=== PATIENT | male | born 1930 | race Caucasian/White ===

== ENCOUNTER 2017-01-09 14:00 | Outpatient (CLI) | payer MEDICARE, BC ==
--- NOTE | 2017-01-09 14:56 | RAD ---
CERVICAL SPINE SERIES 4 VIEWS: HISTORY: Postop. History of fracture. The patient is in a C-collar for this exam. COMPARISON: A 07/28/14 study. FINDINGS: The patient has undergone an anterior cervical fusion at the C4-5 level. This finding appears stable as compared to the prior exam. Severe arthritic changes of the spine are noted. A fracture of the base of the dens is visualized. I do not have any images that show this fracture, but the tip of the dens is posteriorly angulated. IMPRESSION: 1. Base of dens fracture. I have no previous films that show the fracture for comparison. The cordelia ent is in a C-collar. 2. Severe arthritic changes of the spine and postop changes. POS: [facility]
== END 2017-01-09 14:01 | disposition home or self-care (01) ==
LOC: TBSIIMAG 14:00
PROVIDERS: ATTEND Neurological Surgery
DX: S12.9XXA Fracture of neck, unspecified, initial encounter (principal); M47.812 Spondylosis without myelopathy or radiculopathy, cervical region; Z98.890 Other specified postprocedural states
CPT/HCPCS: 72040

== ENCOUNTER 2017-02-26 13:01 | Outpatient (CLI) | payer MEDICARE, BC ==
--- NOTE | 2017-02-26 14:38 | RAD ---
SIX VIEWS OF THE CERVICAL SPINE: 02/26/2017 HISTORY: Fracture of C2 and C3 with prior surgery. COMPARISON: 01/09/2017 FINDINGS: Due to osteopenia and patient positioning, detailed assessment of the cervical spine is markedly limi danelle. There is postoperative anterior diskectomy and fusion hardware at the C4-C5 level. There is suggestion of an obliquely oriented fracture involving the base of the dens, with mild impac tion and posterior displacement of the distal fracture fragment, similar when compared to the prior e xamination, although the distal fracture fragment may be somewhat more sclerotic and slightly posteri karla displaced when compared to the prior exam. However, this distinction is hard to make on the bas is of this exam secondary to patient positioning. The frontal imaging appears grossly unchanged, wit h a stable cervical spine dextroscoliosis. The dens, occipital condyles, and C1-C2 articulation are poorly assessed on frontal imaging secondary to positioning. IMPRESSION: Grossly unchanged cervical spine series, markedly limited on the basis of patient positioning. The s uspected fracture of the C2 vertebral body cannot be adequately assessed on this exam. Recommend CT for further assessment. POS: [facility]
== END 2017-02-26 13:02 | disposition home or self-care (01) ==
LOC: TBSIIMAG 13:01
PROVIDERS: ATTEND Neurological Surgery
DX: S12.0 Fracture of first cervical vertebra (principal); G95.9 Disease of spinal cord, unspecified
CPT/HCPCS: 72040

== ENCOUNTER 2017-05-27 00:04 | Inpatient (IN) | payer MEDICARE, BC ==
[2017-05-27 00:27] LABS: pH, Arterial 7.51 (7.35-7.45)
[2017-05-27 00:28] LABS: Actual Bicarbonate (HCO3a) 28.2 mEq/L (22-26); Base Excess (BEa) 5.1 mEq/L (0 (+/-) 2.5); CO2 Tension 36.3 mmHg (35.0-45.0); Hematocrit-ABG 39.2 % (42.0-52.0); Hemoglobin (Hb) 12.1 g/dL (14.0-18.0)
[2017-05-27 00:29] LABS: Analyzer IN Cardio ER; Calcium, Ionized 1.1 mmol/L (1.12-1.30); Puncture Site LRA
[2017-05-27 00:30] LABS: ALV-art Gradient 163.625 (0-20)
[2017-05-27] MEDS ORDERED: Cefepime 2 GM/10 ML SYR ONE (00:36)
[2017-05-27] MEDS ORDERED: Acetaminophen 325 MG Suppository ONE (00:36)
[2017-05-27] MEDS ORDERED: Vancomycin HCl 1 GM in Premix Bag 1 BAG IVPB SCH ×3 (00:45→09:00)
[2017-05-27 00:49] LABS: Hemoglobin 12.2 g/dL (14.0-18.0); Mean Corpuscular HGB CONC 31.8 g/dL (32.0-36.0); Mean Corpuscular Hemoglobin 30.3 pg (27.0-31.0); Mean Corpuscular Volume 95.3 fl (80.0-94.0); Mean Platelet Volume 9.4 fL (7.4-10.4); Platelet Count 158 thou/uL (130-400); RBC Distribution Width 15.6 % (11.5-14.5); Red Blood Cell (RBC) Count 4.02 mill/uL (4.70-6.10); White Blood Cell (WBC) Count 15.9 thou/uL (4.8-10.8)
[2017-05-27 01:10] LABS: Band 1 % (5-11); Lymphocytes 5 % (21-51); MDiff Complete? YES; Monocytes 6 % (0-10); Neutrophil 87 % (42-75)
[2017-05-27 01:13] LABS: ALT (SGPT) 19 U/L (8-55); AST (SGOT) 46 U/L (5-34); Albumin 3.3 g/dL (3.4-4.8); Alkaline Phosphatase 144 U/L (40-150); Anion Gap 18 mmol/L (10-20); BUN (Urea Nitrogen) 77 mg/dL (8.4-25.7); Bilirubin, Total 1.1 mg/dL (0.2-1.2); Calc. Creatinine Clearance 0 mL/min (70-130); Calcium 9.1 mg/dL (7.8-10.44); Carbon Dioxide 27 mmol/L (23-31); Chloride 99 mmol/L (98-107); Estimated GFR-MDRD 26; Globulin 2.5 g/dL (2.4-3.5); Glucose 98 mg/dL (83-110); Magnesium 2.4 mg/dL (1.6-2.6); Phosphorus 4.7 mg/dL (2.3-4.7); Potassium 5.6 mmol/L (3.5-5.1); Protein, Total 5.8 g/dL (5.8-8.1); Sodium 138 mmol/L (136-145)
[2017-05-27 01:19] LABS: CKMB 1.1 ng/mL (0-6.6); Troponin I 0.273 ng/mL (< 0.028)
[2017-05-27] MEDS ORDERED: Calcium Carbonate 500 MG ChewTAB PO PRN (01:45)
[2017-05-27] MEDS ORDERED: Acetaminophen 650 MG Suppository PR PRN (01:45)
[2017-05-27] MEDS ORDERED: Norepinephrine 8 MG/0.9% NS 250 ML IVPB PRN (01:45)
[2017-05-27] MEDS ORDERED: Mag-Al 1200 mg/1200 mg/30 ML UDCUP PO PRN (01:45)
[2017-05-27] MEDS ORDERED: Sodium Chloride 0.9% 1,000 ML IV SCH (01:45)
[2017-05-27] MEDS ORDERED: Ondansetron HCl/PF 4 MG/2 ML Vial IVP PRN (01:45)
[2017-05-27] MEDS ORDERED: Senokot 8.6 MG TAB PO PRN (01:45)
[2017-05-27] MEDS ORDERED: Acetaminophen 325 MG TAB PO PRN (01:45)
[2017-05-27] MEDS ORDERED: Bisacodyl 5 MG TAB PO PRN (01:45)
[2017-05-27] MEDS ORDERED: VANCOMYCIN IVPB PRN (01:58)
--- NOTE | 2017-05-27 04:24 | HP ---
PRIMARY CARE PHYSICIAN: Dr. Manolo Erickson at [facility]. CHIEF COMPLAINT: Shortness of breath, altered mental status, and fever. HISTORY OF PRESENT ILLNESS: Mr. Kuo is an 86-year-old male with past medical history o f congestive heart failure, EF of 30%; atrial fibrillation; rheumatoid arthritis; coronary artery dis ease; hypertension; dyslipidemia; hypothyroidism; and pacemaker placement for bradycardia, who presen danelle to the emergency room from [facility]. History is mainly obtained by the record r gail and discussion with emergency room physician. The patient is not able to provide any history a t this time because of encephalopathy and dementia and there is no family at bedside. skilled nursing r ecords are reviewed in entirety. It seems like that Mr. Kuo was recently admitted to [facility] and was treated for UT I and for bradycardia with pacemaker replacement. He was discharged to [facility] 2 d ays ago. He was brought into the emergency room today when he was found to have altered mental statu s. He was also significantly short of breath with [facility] He was initially started on nonrebreather and oxygen saturations did not improve. Upon EMS arrival, the patient was 90% on room air and the sats dropped to 80% afterwards. The EMS placed the patient on CPAP and sats improved to 100%, but he was noted to have periods of apnea en route. Upon presentation to the emergency room, he was found to have a temperature of 101.1 with blood pressure o f 99/56, heart rate of 72. He was not able to provide any history and was moaning. He was found to have significant encephalopathy. In the emergency room, workup included a 12-lead EKG, which showed sinus rhythm with first degree AV block. Chest x-ray was done which was consistent with right lower lobe pneumonia. Because of hypote nsion and hypoxia, he was treated with BiPAP and started on IV fluids and received empiric IV antibio tics, namely vancomycin, cefepime, and levofloxacin. Cultures were obtained. His further workup rev ealed leukocytosis with left shift as well as elevated lactic acid at 2.4 and acute renal insufficien cy with creatinine of 2.35 and hyperkalemia with a potassium of 5.6. He also has borderline elevated troponin at 0.273. BNP that was added a little bit later came back just now elevated at 7929. At this time, the patient is being admitted to [facility] on BiPAP and his most recent blood pressure is sy stolic, it is in the 90s. PAST MEDICAL HISTORY: 1. Atrial fibrillation. 2. History of sinus bradycardia, status post pacemaker placement. 3. Congestive heart failure with echo done on 05/19/2017 showed dilated left ventricle with severely reduced EF of 30% without any evidence of intracardiac mass or thrombi. He also has mild mitral reg urgitation. 4. Rheumatoid arthritis. 5. Coronary artery disease. 6. Hypertension. 7. Dyslipidemia. 8. Hypothyroidism. PAST SURGICAL HISTORY: 1. Orchiectomy. 2. Superficial lymph node biopsy and excision. SOCIAL HISTORY: According to the EMR, he has no history of drug, tobacco, or alcohol abuse. He is c urrently doing rehab at [facility]. ALLERGIES: NEOSPORIN. HOME MEDICATIONS: Listed at the rehab chart includes as follows minocycline 100 mg twice a day for 5 days, which was started on 05/22/2017, Lasix 80 mg daily, amiodarone 200 mg daily, Advair Diskus 1 p uff daily, hydroxychloroquine 200 mg daily, DuoNeb as needed, levothyroxine 88 mcg daily, midodrine 5 mg 3 times a day, potassium chloride 10 mEq daily, ranitidine 150 mg b.i.d., Singulair 5 mg daily, t razodone 25 mg at bedtime, and Kenalog topical. FAMILY HISTORY: Unobtainable, but according to the EMR, family history is positive for coronary lele ry disease, stroke, and rheumatoid arthritis. I have no way to corroborate that from the patient as he is very encephalopathic. REVIEW OF SYSTEMS: Unobtainable as the patient has dementia and has altered mental status at this ti mi. LABORATORY AND DIAGNOSTIC DATA: His CBC shows WBCs at 15.9 with 87% neutrophils, hemoglobin 12.2. A BG shows pH of 7.51, pCO2 of 36, pO2 of 504 on CPAP. Sodium 138, potassium 5.3 on the ABG. Serum ch emistry shows BUN of 77, creatinine 2.35. Lactic acid 2.4, AST 46, troponin 0.273. BNP 7929. Urina lysis has not been done. Chest x-ray shows possible pulmonary vascular congestion and right lower lo be infiltrate by my review. Formal report is pending at this time. Twelve lead EKG shows sinus tach ycardia. PHYSICAL EXAMINATION: VITAL SIGNS: Upon presentation, blood pressure 98/57, respirations 18, pulse of 61, saturating 100% on BiPAP, temperature 99.4, and T-max of 100.4. GENERAL: He is easily agitated. He is otherwise encephalopathy and does not follow any commands or answers any questions. He moves all 4 extremities when touched even gently and starts to holler. Ap pears thin and cachectic. HEENT: Mucous membrane is very dry. Exam is limited because of the BiPAP mask. Head appears normoc ephalic, atraumatic with frontal wasting. Pupils are equal, reactive to light. NECK: Supple without any lymphadenopathy, JVD, or bruit. CHEST: Shows decreased breath sound at bases and bibasilar crackles. CARDIOVASCULAR: Regular rate and rhythm is regular without any significant murmurs. Pacemaker in le ft anterior chest without any unwanted adhesion or discharge. ABDOMEN: Soft, nondistended with positive bowel sounds. EXTREMITIES: Free of any cyanosis, clubbing, or edema. NEUROLOGIC: He is moving all 4 extremities. He is not oriented at all or alert. He is somnolent an d when awoken up, he is quite agitated. He does not answer any questions or follow any commands. SKIN: Fragile with different areas of bruises and skin tears. PSYCHIATRIC: Cannot be evaluated because of encephalopathy. IMPRESSION AND PLAN: 1. Acute metabolic encephalopathy. This is likely multifactorial along with renal insufficiency and significant sepsis. 2. Severe sepsis with acute end-organ damage. At this time, the source most likely either is pneumo mabel versus urinary tract infection or both. We will obtain urine cultures and follow the blood cultu re results. Start him empirically with broad spectrum IV antibiotics for healthcare-associated pneum onia. The patient has received approximately 2 liters of IV fluid in the emergency room for hypotens ion and at this time, we will not give him any more given his poor ejection fraction and evidence of pulmonary vascular congestion on the chest x-ray. 3. Septic shock versus cardiogenic shock. The patient has advanced congestive heart failure and his blood pressure has dropped to 80s despite 2 liters of IV fluids. It has improved to systolic 90s fo r now. We will admit him for the ICU with a low threshold to transfer to critical care unit on press ors. He will benefit from dobutamine infusion, but unfortunately he does not have a central line at this time. If needed, we will start the Levophed drip tonight with transitioning to dobutamine drip in the morning. We will consult Pulmonary Critical Care for their input in the morning as well. 4. Acute renal insufficiency. I do not have any baseline for this patient. Most likely, this seems like an acute episode. His creatinine on 05/23/2017 was normal at 1.30. This might represent a car diorenal syndrome versus dehydration. The patient has been adequately fluid resuscitated for now and cannot handle any more fluids because of congestive heart failure. 5. Acute hypoxic respiratory failure. This most likely is a combination of pneumonia versus acute c ongestive heart failure as well as his chronic pulmonary fibrosis that the patient has. He will be c ontinued on BiPAP for now. The patient's code status is unknown. He does have a DNR bracelet on his arm, but unfortunately the alf has not sent his code status paper works. There is no famil y to address this at this time either. We will consult palliative care team for this in the morning. The patient will be a very poor candidate to be a FULL CODE. We will start him on nebulizers sched uled and p.r.n. 6. Acute on chronic systolic congestive heart failure. The patient needs diuresis, but because of l ow blood pressure, it is prohibitive at this time. If his blood pressure sustains, we will give him 1 dose of Lasix. 7. History of atrial fibrillation. The patient will be continued on amiodarone as soon as he is abl e to take oral medications. Thankfully, at this time, he is in normal sinus rhythm. 8. History of coronary artery disease. We will resume his home medications as soon as possible. Cu rrently, the patient is n.p.o. for encephalopathy. 9. Code status: At this time the code status is unknown because there is no family available and th e patient is unable to provide any answers to the questions. We will consult Palliative Care team fo r further addressing this issue. 10. Deep venous thrombosis and gastrointestinal prophylaxis. 11. Add p.r.n. medication orders and continue supportive care. DISPOSITION: Mr. Kuo is severely ill with severe sepsis: Acute hypoxic respiratory failure: Ac shashank on chronic systolic congestive heart failure and acute kidney insufficiency. Prognosis is very p oor, would not be an expected. Estimated length of stay at this time is at least 2-3 midnights. Further management will depend upon his clinical course. Total time spent in the care of this patient is 40 minutes.
[2017-05-27 04:28] LABS: Bilirubin Small (Negative); Blood, Urine Small (Negative); Clarity CLOUDY (Clear); Glucose, Urine (Dipstick) Negative (Negative); Leukocyte Small (Negative); Nitrite Negative (Negative); Protein, Urine (Dipstick) 30 mg/dL (Neg-Trace); Specific Gravity, Urine 1.023 (1.002-1.036); Urobilinogen 0.2 mg/dL (0.2-1.0)
[2017-05-27 04:29] LABS: Bacteria/HPF None Seen HPF (None Seen); Squamous Epithelial 0-3 HPF (0-3); WBC/HPF 0-3 HPF (0-3)
[2017-05-27 04:30] LABS: Pathc Cast-AUWi Flag 6.83 (0-2.49); Yeast-AUWi Flag 46.8 (0-25.0)
[2017-05-27] MEDS ORDERED: HOLD VANCOMYCIN FOR LEVEL >20 FS SCH (04:30)
[2017-05-27] MEDS ORDERED: Vancomycin HCl 250 MG in Sodium Chloride 0.9% 100 ML IVPB SCH (04:30)
[2017-05-27] MEDS ORDERED: Vancomycin HCl 500 MG in Sodium Chloride 0.9% 100 ML IVPB SCH (04:30)
[2017-05-27] MEDS ORDERED: Vancomycin HCl 750 MG in Sodium Chloride 0.9% 250 ML 250 ML IVPB SCH (04:30)
[2017-05-27 04:42] LABS: Crystals/HPF 1+ AMORPH URATES HPF (Negative); Hyaline Casts/LPF 7-10 HYALINE CAST LPF (0-3 Hyaline); Manual Microscopic Reviewed? No Path Casts Seen; Renal Epithelial 0-3 HPF (0-3); Transitional Epithelial NONE SEEN HPF (0-3); Yeast-All Forms None Seen HPF (None Seen)
--- NOTE | 2017-05-27 05:02 | PDOC.EVN ---
Event Note - Event Note Event Note: Code status discussed with Son who ,along with .is MPOA.Pt is a DNR/ DNI.Will put orders in [facility].Total time spent in discussion 10 minutes.
[2017-05-27 06:12] LABS: Lactic Acid 2.3 mmol/L (0.5-2.2)
[2017-05-27 06:19] LABS: Anion Gap 14 mmol/L (10-20); BUN (Urea Nitrogen) 75 mg/dL (8.4-25.7); Calc. Creatinine Clearance 20 mL/min (70-130); Calcium 8.4 mg/dL (7.8-10.44); Carbon Dioxide 27 mmol/L (23-31); Chloride 103 mmol/L (98-107); Estimated GFR-MDRD 30; Glucose 89 mg/dL (83-110); Potassium 5.1 mmol/L (3.5-5.1); Sodium 139 mmol/L (136-145)
[2017-05-27 06:47] LABS: Band 2 % (5-11); Hemoglobin 10.9 g/dL (14.0-18.0); Lymphocytes 6 % (21-51); MDiff Complete? YES; Mean Corpuscular HGB CONC 31.2 g/dL (32.0-36.0); Mean Corpuscular Hemoglobin 29.9 pg (27.0-31.0); Mean Platelet Volume 9.4 fL (7.4-10.4); Monocytes 9 % (0-10); Neutrophil 83 % (42-75); Platelet Count 142 thou/uL (130-400); RBC Distribution Width 15.5 % (11.5-14.5); Red Blood Cell (RBC) Count 3.65 mill/uL (4.70-6.10); White Blood Cell (WBC) Count 14.2 thou/uL (4.8-10.8)
--- NOTE | 2017-05-27 07:47 | RAD ---
PORTABLE CHEST: DATE: 05/26/17. TIME: 11:40 p.m. INDICATION: Shortness of breath. Mental status change. COMPARISON: Comparison is made with the film of 05/26/17 at 8:11 p.m. FINDINGS: Cardiomegaly and vascular congestion again noted. The interstitial edema may be slightly improved. Pacemaker AICD leads are unchanged. No other significant change. IMPRESSION: Cardiomegaly with mild congestive change. POS: [facility]
[2017-05-27] MEDS ORDERED: Cefepime 1 GM in Sodium Chloride 0.9% 100 ML IVPB SCH (09:00)
[2017-05-27 09:08] LABS: Troponin I 0.246 ng/mL (< 0.028)
[2017-05-27] MEDS: Heparin 5,000 UNITS/ML VIAL SC SCH ×3 (10:03→20:46)
[2017-05-27] MEDS: Famotidine/PF 20 mg/2ml Vial SLOW IVP SCH (10:03)
[2017-05-27] MEDS: Cefepime 1 GM, Admixture Fee 1 EACH in Sodium Chloride 0.9% 10 ML SLOW IVP SCH ×2 (10:04→20:46)
--- NOTE | 2017-05-27 14:41 | CON ---
DATE OF CONSULTATION: 05/27/2017 HISTORY: This is an 86-year-old demented gentleman admitted to the hospital with respiratory failure , comes via [facility]. He is unable to give any significant history. In fact he is unable to tell m e what he is in the hospital here for, but apparently was short of breath. Sats were in the 80s on l ow flow O2, he was placed on nonrebreather. His x-ray shows diffuse interstitial edema consistent wi th CHF. He has got a recent pacemaker scar. His EF is apparently 30% as per the history. He has se verely contracted upper and lower extremities, probably from longstanding rheumatoid arthritis. There are no family members here to get additional information on him. As soon as family members arrive will try and get additional information. He has been in this instit ution years sometime back. He does remember his doctor, Dr. Erickson at [facility]. PAST MEDICAL HISTORY: Pertinent for hypothyroidism, severe rheumatoid arthritis, history of coronary artery disease, pacemaker, history of apparently lymphoma in the past, chronic pain, dementia. . 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 Add itionally, has a pacemaker. MEDICATIONS: His list of medicine from home includes trazodone 50, potassium, Singulair 5, vitamins, Synthroid 88, hydrocodone, Lasix 80, Breo, Advair, doxycycline, Pepcid and throat lozenges. ALLERGIES: NEOSPORIN. SOCIAL/FAMILY HISTORY: Otherwise remarkable he is a former smoker, no alcohol abuse. REVIEW OF SYSTEMS: Difficult to obtain. He is clearly demented. PHYSICAL EXAMINATION: GENERAL: Appears to be in no acute distress. VITAL SIGNS: Sats are 96 on 3 liters, respirations 29, blood pressure 88/54. CHEST: Bilateral crackles. CARDIAC: Normal S1-S2. No gallops. ABDOMEN: Soft. No masses. LABORATORY: White count 14,000, H&H 13 and 35, platelet count is 142, 83 segs, 2 bands. Creatinine is 2.0. Troponin was elevated. BNP is 7000 greater. IMPRESSION: 1. Acute on chronic respiratory failure. 2. Likely congestive heart failure. 3. Rheumatoid arthritis, disabling. 4. Status post cervical surgery. 5. Status post pacemaker . 6. Multiple contractures. PLAN: Broad-spectrum antibiotics were initiated, adjusted for the renal failure. I have started low dose steroids. Await results of the echo. We will obtain a cardiac consult. The patient is a DNR. He could be transferred later to a non-monitored bed. I will discuss with family as they arrive. This is a consultation, 70 minutes, 50% spent in direct patient care.
[2017-05-28 02:27] LABS: Vancomycin, Random 15.3 ug/mL (See Comment)
[2017-05-28 02:37] LABS: #Lymphocytes 0.2 thou/uL (1.20-3.40); #Monocytes 0.1 thou/uL (0.11-0.59); #Neutrophils 7.2 thou/uL (1.40-6.50); %Eosinophils 0.1 % (0.0-10.0); %Lymphocytes 3.1 % (21.0-51.0); %Monocytes 1.5 % (0.0-10.0); %Neutrophils 95.3 % (42.0-75.0); Anisocytosis SLIGHT = 6-15 cells (100X) (0-5/hpf); Hemoglobin 11.5 g/dL (14.0-18.0); MDiff Complete? YES; Mean Corpuscular HGB CONC 31.4 g/dL (32.0-36.0); Mean Corpuscular Hemoglobin 30.1 pg (27.0-31.0); Mean Corpuscular Volume 95.7 fl (80.0-94.0); Mean Platelet Volume 9.7 fL (7.4-10.4); Platelet Count 123 thou/uL (130-400); RBC Distribution Width 15.6 % (11.5-14.5); Red Blood Cell (RBC) Count 3.84 mill/uL (4.70-6.10); White Blood Cell (WBC) Count 7.5 thou/uL (4.8-10.8)
[2017-05-28 02:59] LABS: Anion Gap 17 mmol/L (10-20); BUN (Urea Nitrogen) 72 mg/dL (8.4-25.7); Calc. Creatinine Clearance 21 mL/min (70-130); Calcium 8.9 mg/dL (7.8-10.44); Carbon Dioxide 23 mmol/L (23-31); Chloride 105 mmol/L (98-107); Estimated GFR-MDRD 32; Glucose 105 mg/dL (83-110); Potassium 4.7 mmol/L (3.5-5.1); Sodium 140 mmol/L (136-145)
[2017-05-28] MEDS ORDERED: Bisacodyl 10 MG SUPP PR PRN (08:41)
[2017-05-28] MEDS ORDERED: Artificial Tears 18 DROP/0.9 ML EA EYE PRN (08:41)
[2017-05-28] MEDS ORDERED: Cepastat Lozenges 1 LOZ PO PRN (08:41)
[2017-05-28] MEDS ORDERED: Calcium Carbonate 500 MG ChewTAB PO PRN (08:41)
[2017-05-28] MEDS ORDERED: Acetaminophen 325 MG TAB PO PRN (08:41)
[2017-05-28] MEDS ORDERED: Acetaminophen 500 MG TAB PO PRN (08:41)
[2017-05-28] MEDS ORDERED: Non-Formulary Item 1 EACH (Fluticasone/Salmeterol [Advair Diskus 100/50] 1 INH) IH SCH (09:00)
[2017-05-28] MEDS ORDERED: Furosemide 40 MG/4 ML VIAL SLOW IVP SCH (09:00)
[2017-05-28] MEDS ORDERED: Lidocaine Patch Removal 1 EACH TOP SCH (09:00)
[2017-05-28] MEDS ORDERED: Non-Formulary Item 1 EACH (Fluticasone/Vilanterol [Breo Ellipta] 1 INH) IH SCH (09:00)
[2017-05-28] MEDS: Levothyroxine Sodium 88 MCG TAB PO SCH (10:01)
[2017-05-28] MEDS: Polyethylene Glycol 3350 17 GM Packet PO SCH (10:01)
[2017-05-28] MEDS: Calcium Carbonate + Vit D 1 TAB PO SCH (10:02)
[2017-05-28] MEDS: Potassium Chloride 10 MEQ TAB PO SCH ×2 (10:02→20:58)
[2017-05-28] MEDS: Multivitamin W/ Minerals 1 TAB PO SCH (10:02)
[2017-05-28] MEDS: Midodrine HCl 5 MG TAB PO SCH ×3 (10:03→20:58)
[2017-05-28] MEDS: Amiodarone 200 MG TAB PO SCH (10:03)
[2017-05-28] MEDS: Cefepime 1 GM, Admixture Fee 1 EACH in Sodium Chloride 0.9% 10 ML SLOW IVP SCH ×2 (10:03→20:57)
[2017-05-28] MEDS: Hydroxychloroquine Sulfate 200 MG TAB PO SCH (10:04)
[2017-05-28] MEDS: Lidocaine 5% Patch TD SCH (10:04)
[2017-05-28] MEDS: Heparin 5,000 UNITS/ML VIAL SC SCH ×3 (10:04→20:59)
[2017-05-28] MEDS: Famotidine 20 MG TAB PO SCH ×2 (10:05→20:58)
[2017-05-28] MEDS: Famotidine/PF 20 mg/2ml Vial SLOW IVP SCH (10:33)
--- NOTE | 2017-05-28 10:36 | PQF ---
DATE: 05-28-17 ATTN: DR. CODY MAURICE Please exercise your independent, professional judgment in responding to the clarification form. Clinical indicators are provided on the bottom of this form for your review Please check appropriate box(s): [ X ] Acute Renal Failure (ARF) / Acute Kidney Injury (TERI) [ ] Acute on Chronic Renal Failure please specify Stage of CKD (see below) [ ] CKD without ARF/TERI please specify Stage of CKD [ ] Other diagnosis [ ] Unable to determine In addition, please specify: Present on Admission (POA): [ X ] Yes [ ] No [ ] Unable to determine National Kidney Foundation Guidelines for CKD Staging Stage I Kidney damage with normal or increased GFR GFR > 90 Stage II Kidney damage with mildly decreased GFR GFR 60-89 Stage III Kidney damage with moderately decreased GFR GFR 30-59 Stage IV Kidney damage with severely decreased GFR GFR 16-29 Stage V Kidney failure GFR<15 ESRD End Stage Renal Disease On dialysis Acute Renal Failure/Acute Kidney Failure defined as: Increases in SCr by (>) 0.3 mg/dl within 48 hours OR- Increases in SCr by (>) 1.5 times baseline, known or presumed to have occurred within the prior 7 days OR- Urine volume < 0.5 ml/kg/hour for 6 hours (KDIGO supplement 2012 for RIFLE/SUSANNA criteria) For continuity of documentation, please document condition throughout progress notes and discharge summary. Thank You. CLINICAL INDICATORS - SIGNS / SYMPTOMS / LABS H&P: ACUTE RENAL INSUFFICIENCY WITH CREATININE OF 2.35, ACUTE RENAL INSUFFICIENCY. MOST LIKELY, THIS SEEMS LIKE AN ACUTE EPISODE GFR: 42-18: 26 4-218: 30 4-18: 32 CREATININE: 4-2-18: 2.35 4-2-18: 2.10 4-3-18: 2.00 BUN: 4-218: 77 4-2-18: 75 4--18: 72 BP: 4-2-18: 97.50, 94/57, 88/54 RISK FACTORS: H&P: ACUTE RENAL INSUFFICIENCY. THIS MIGHT REPRESENT A CARDIORENAL SYNDROME VS DEHYDRATION. SEPTIC SHOCK VS CARDIOGENIC SHOCK H&P: HOME MEDS: LASIX TREATMENTS: H&P: THE PATIENT HAS BEEN ADEQUATELY FLUID RESUSCITATED FOR NOW AND CANNOT HANDLE ANY MORE FLUIDS BECAUSE OF CHF (This form is maintained as a part of the permanent medical record) 2014 [employer]. All Rights Reserved [email or web address] [email or web address] Office: [phone] [facility] HOSPITALJuanita
--- NOTE | 2017-05-28 11:06 | PQF ---
Date: 05-28-17 ATTN: DR. CODY MAURICE Please exercise your independent, professional judgment in responding to the clarification form. Clinical indicators are provided on the bottom of this form for your review Please check appropriate box(s): [ X ] Protein Calorie Malnutrition: [ ] Mild [ X ] Moderate [ ] Severe [ ] Underweight without malnutrition [ ] Other diagnosis [ ] Unable to determine In addition, please specify: Present on Admission (POA): [ X ] Yes [ ] No [ ] Unable to determine CLINICAL INDICATORS - SIGNS / SYMPTOMS / LABS BMI of 16.9 H&P: APPEARS THIN AND CACHECTIC, MUCOUS MEMBRANE IS VERY DRY, ATRAUMATIC WITH FRONTAL WASTING, FRAGILE WITH DIFFERENT AREAS OF BRUISES AND SKIN TEARS. CONSULT DR. JO 05-27-17: DEMENTIA, MULTIPLE CONTRACTURES REGISTERED NURSE FETAL CONSULT: KCAL, G PROTEIN AND FLUIDS NOT MET, SUSPECT DYSPHAGIA, PATIENT COUGHING WITH LIQUIDS, NO INTAKE THIS ADMIT RISK FACTORS: CONSULT DR. JO 05-27-17: DEMENTIA, MULTIPLE CONTRACTURES H&P: HX OF SEVERE SEPSIS, SEPTIC SHOCK VS CARDIOGENIC SHOCK, ACUTE RESPIRATORY FAILURE, ACUTE ON CHRONIC SYSTOLIC CHF, UTI, ENCEPHALOPATHY, HX OF CAD, DM, HYPOTHYROIDISM TREATMENT: REGISTERED NURSE FETAL CONSULT 05-27-17: RECOMMENDATIONS: 1. IF SAFE FOR PO INTAKE, CONTINUE HEART HEALTHY DIET TYPE WITH TEXTURE PER [employer] 2. RECOMMEND SUPLENA TID TO AID WITH INTAKE FOR WEIGHT GAIN 3. MONITOR RENAL FUNCTION (MAR) CALCIUM CARBONATE + VIT D, MULTIVITAMIN W/ MINERALS Moderate Malnutrition (in acute illness) Energy Intake: <75% of estimated energy requirement for > 7 days Weight Loss: 1-2%/1 week; 5%/ 1 month; 7.5%/3 months Other: mild body fat loss; mild muscle mass loss; mild fluid accumulation; Severe Malnutrition (in acute illness) Energy Intake: < 50% of estimated energy requirement for > 5 days Weight Loss: >1-2%/1 week; >5%/1 month; >7.5%/3 months Other: moderate body fat loss; moderate muscle mass loss; moderate- severe fluid accumulation; measurably reduced expenditure requisition clerk strength Moderate Malnutrition (in chronic illness) Energy Intake: <75% of estimated energy requirement for >1 month Weight Loss: 5%/1 month; 7.5%/3 months; 10%/6 months; 20%/1 year Other: mild body fat loss; mild muscle mass loss; mild fluid accumulation Severe Malnutrition (in chronic illness) Energy Intake: <75% of estimated energy requirement for >1 month Weight Loss: >5%/1 month; >7.5%/3 months; >10%/6 months; >20%/1 year Other: severe body fat loss; severe muscle mass loss; severe fluid accumulation ; measurably reduced expenditure requisition clerk strength (This form is maintained as a part of the permanent medical record) 2014 [employer]. All Rights Reserved KRYSTIAN [email or web address] Office: [phone] [facility]
--- NOTE | 2017-05-28 14:33 | PDOC.PN ---
- Subjective Encounter Start Date: 05/28/17 Encounter Start Time: 09:40 Pt seen for followup re: acute on chronic respiratory failure. Denies chest pain, reports shortness of breath with exertion. No nausea or vomiting. - Objective Resuscitation Status: Resuscitation Status DNR:Do Not Resuscitate MAR Reviewed: Yes Vital Signs & Weight: Vital Signs (12 hours) Temp Pulse Pulse Pulse Resp BP BP 05/28/17 14:11 70 16 05/28/17 12:00 97.9 F 68 16 05/28/17 08:46 100 70 105/51 L 109/52 L 05/28/17 08:00 98.9 F 67 16 05/28/17 07:44 98.9 F 67 16 05/28/17 07:36 68 18 05/28/17 04:00 98.5 F 64 20 BP Pulse Ox Pulse Ox Pulse Ox 05/28/17 14:11 98 05/28/17 12:00 110/64 99 05/28/17 08:46 100 98 05/28/17 08:00 100 05/28/17 07:44 106/56 L 100 05/28/17 07:36 99 05/28/17 04:00 105/55 L 98 Weight Admit Weight 124 lb 11.2 oz Weight 125 lb 9.6 oz I&O: 05/27/17 05/28/17 05/29/17 06:59 06:59 06:59 Intake Total 400 360 Output Total 100 700 Balance -100 -300 360 Result Diagrams: 05/28/17 01:58 05/28/17 01:58 EKG Reviewed by me: Yes (Tele: NSR) Phys Exam - Physical Examination Constitutional: NAD HEENT: PERRLA, moist MMs, sclera anicteric, oral pharynx no lesions Neck: no nodes, supple, full ROM JVD Respiratory: no wheezing, no rhonchi Christopher crackles Cardiovascular: RRR, no rub Gastrointestinal: soft, non-tender, no distention, positive bowel sounds Neurological: moves all 4 limbs Psychiatric: normal affect, A&O x 3 Skin: no rash, normal turgor, cap refill <2 seconds Dx/Plan (1) Acute and chronic respiratory failure Code(s): J96.20 - ACUTE AND CHR RESP FAILURE, UNSP W HYPOXIA OR HYPERCAPNIA Status: Acute Comment: likely due to CHF exacerbation. (2) CHF exacerbation Code(s): I50.9 - HEART FAILURE, UNSPECIFIED Status: Acute Qualifiers: Heart failure type: systolic Qualified Code(s): I50.23 - Acute on chronic systolic (congestive) heart failure Comment: Continue IV diuretics as blood pressure allows (3) UTI (urinary tract infection) Status: Acute Comment: continue cefepime, await cultures (4) TERI (acute kidney injury) Code(s): N17.9 - ACUTE KIDNEY FAILURE, UNSPECIFIED Status: Acute Comment: ? ATN secondary to hypotension (5) Ischemic cardiomyopathy Code(s): I25.5 - ISCHEMIC CARDIOMYOPATHY Status: Chronic Comment: Pt is not on beta hannah or ACEI due to hypotension (and TERI). (6) HTN (hypertension) Code(s): I10 - ESSENTIAL (PRIMARY) HYPERTENSION Status: Chronic Comment: Monitor vital signs, titrate antihypertensives as needed. (7) Dyslipidemia Code(s): E78.5 - HYPERLIPIDEMIA, UNSPECIFIED Status: Chronic Comment: continue statin (8) Hypothyroidism Code(s): E03.9 - HYPOTHYROIDISM, UNSPECIFIED Status: Chronic (9) Moderate protein-calorie malnutrition Code(s): E44.0 - MODERATE PROTEIN-CALORIE MALNUTRITION Status: Chronic Comment: appreciate dietitian input - Plan * . No clear evidence of atrial fibrillation, need to obtain records from PCP to clarify. Review of Systems - Review of Systems Constitutional: negative: fever, chills, sweats, weakness, malaise Respiratory: negative: Cough, Dry, Shortness of Breath, Hemoptysis, SOB with Excertion, Pleuritic Pain, Sputum, Wheezing Cardiovascular: negative: chest pain, palpitations, orthopnea, paroxysmal nocturnal dyspnea, edema, light headedness Musculoskeletal: Back Pain Skin: Bruising. negative: Rash, Lesions, Hunter - Medications/Allergies Allergies/Adverse Reactions: Allergies Allergy/AdvReac Type Severity Reaction Status Date / Time bacitracin Allergy Verified 05/27/17 03:45 [From Neosporin ([id number])] bacitracin zinc Allergy Verified 05/27/17 03:45 [From Neosporin ([id number])] neomycin sulfate Allergy Verified 05/27/17 03:45 [From Neosporin ([id number]-[id number])] polymyxin B Allergy Verified 05/27/17 03:45 [From Neosporin ([id number])] TAPE Allergy Uncoded 05/27/17 03:45 Medications: Current Medications Acetaminophen (Tylenol) 650 mg ID Q4H PRN PRN Reason: Headache/Fever or Pain Acetaminophen (Tylenol) 650 mg PO Q6H PRN PRN Reason: Pain Acetaminophen (Tylenol) 1,000 mg PO Q4H PRN PRN Reason: Headache Al Hydroxide/Mg Hydroxide (Maalox) 30 ml PO Q6H PRN PRN Reason: Heartburn or Indigestion Albuterol/Ipratropium (Duoneb) 3 ml NEB [id number] [facility] Last Admin: 05/28/17 14:11 Dose: 3 ml Albuterol/Ipratropium (Duoneb) 3 ml NEB Q6H PRN PRN Reason: Wheezing Amiodarone HCl (Cordarone) 200 mg PO DAILY [facility] Last Admin: 05/28/17 10:03 Dose: 200 mg Artificial Tears (Tears Naturale) 1 - 2 drop EA EYE ASDIR PRN PRN Reason: Dry Eyes Bisacodyl (Dulcolax) 10 mg PO DAILYPRN PRN PRN Reason: Constipation Bisacodyl (Dulcolax) 10 mg ID DAILY PRN PRN Reason: Constipation Calcium Carbonate (Tums) 500 mg PO QID PRN PRN Reason: Indigestion Calcium/Vitamin D (Caltrate 600 + Vit D) 1 tab PO DAILY [facility] Last Admin: 05/28/17 10:02 Dose: 1 tab Famotidine (Pepcid) 20 mg PO BID [facility] Last Admin: 05/28/17 10:05 Dose: 20 mg Furosemide (Lasix) 40 mg SLOW IVP DAILY [facility] Heparin Sodium (Porcine) (Heparin) 5,000 units SC TID [facility] Last Admin: 05/28/17 10:04 Dose: 5,000 units Hydroxychloroquine Sulfate (Plaquenil) 200 mg PO DAILY [facility] Last Admin: 05/28/17 10:04 Dose: 200 mg Norepinephrine Bitartrate (Levophed) 250 mls @ 0 mls/hr IVPB INF PRN; Protocol ; Titrate PRN Reason: MAP<65 Cefepime HCl 1 gm/Miscellaneous Medication 1 each/ Sodium Chloride 10 mls @ 120 mls/hr SLOW IVP 0900,2100 [facility] Last Admin: 05/28/17 10:03 Dose: 10 mls Iron/Minerals/Multivitamins (Theragran M) 1 tab PO DAILY [facility] Last Admin: 05/28/17 10:02 Dose: 1 tab Levothyroxine Sodium (Synthroid) 88 mcg PO DAILY [facility] Last Admin: 05/28/17 10:01 Dose: 88 mcg Lidocaine (Lidoderm 5% Patch) 1 patch TD DAILY [facility] Last Admin: 05/28/17 10:04 Dose: 1 patch Methylprednisolone Sodium Succinate (Solu-Medrol) 40 mg IVP Q6HR [facility] Last Admin: 05/28/17 12:20 Dose: 40 mg Midodrine (Proamatine) 5 mg PO TID [facility] Last Admin: 05/28/17 10:03 Dose: 5 mg Miscellaneous Medication (Lidocaine Patch Removal) 1 each TOP ASDIR [facility] Mometasone Furoate/Formoterol Fumar (Dulera 100 Mcg/5 Mcg Inhaler) 2 puff INH BID-RT [facility] Montelukast Sodium (Singulair) 5 mg PO QPM [facility] Ondansetron HCl (Zofran) 4 mg IVP Q6H PRN PRN Reason: Nausea/Vomiting Polyethylene Glycol (Miralax) 17 gm PO DAILY [facility] Last Admin: 05/28/17 10:01 Dose: 17 gm Potassium Chloride (Klor-Con 10) 10 meq PO BID [facility] Last Admin: 05/28/17 10:02 Dose: 10 meq Senna (Senokot) 2 tab PO HSPRN PRN PRN Reason: Constipation Sodium Chloride (Flush - Normal Saline) 10 ml IVF Q12HR [facility] Last Admin: 05/28/17 10:05 Dose: 10 ml Sodium Chloride (Flush - Normal Saline) 10 ml IVF PRN PRN PRN Reason: Saline Flush Throat Lozenges (Cepastat Lozenges) 1 keerthi PO Q2H PRN PRN Reason: SORE THROAT
--- NOTE | 2017-05-28 15:21 | PRG ---
DATE OF SERVICE: 05/28/2017 SUBJECTIVE: This morning, he is better, he is less short of breath, . OBJECTIVE: VITAL SIGNS: Sats are 100% on 2 liters, temperature 98, pulse 67, respirations 16, blood pressure 10 6/56. CHEST: Bilateral crackles. CARDIAC: Normal S1, S2. No gallops. ABDOMEN: Soft, no masses. LABORATORY DATA: White count 7000, H and H 11 and 36, platelets 123,000. Creatinine is 2. IMPRESSION: 1. Congestive heart failure, diffuse respiratory failure. 2. I doubt pneumonia, sepsis. PLAN: Discontinue vancomycin. Continue Maxipime, steroids, and nebs treatment. Await cardiac input.
[2017-05-28] MEDS: Mometasone/Formoterol 120 PUFF INHALER INH SCH (18:35)
[2017-05-28] MEDS: Montelukast Sodium 10 mg Tablet PO SCH (20:58)
[2017-05-28] MEDS ORDERED: MONTELUKAST SODIUM 5 MG PO SCH (21:00)
[2017-05-29 02:33] LABS: #Lymphocytes 0.2 thou/uL (1.20-3.40); #Monocytes 0.5 thou/uL (0.11-0.59); #Neutrophils 12.9 thou/uL (1.40-6.50); %Eosinophils 0.1 % (0.0-10.0); %Lymphocytes 1.6 % (21.0-51.0); %Monocytes 3.5 % (0.0-10.0); %Neutrophils 94.9 % (42.0-75.0); Hemoglobin 10.6 g/dL (14.0-18.0); Mean Corpuscular Hemoglobin 29.9 pg (27.0-31.0); Mean Corpuscular Volume 93.3 fl (80.0-94.0); Mean Platelet Volume 9.3 fL (7.4-10.4); Platelet Count 120 thou/uL (130-400); RBC Distribution Width 15.2 % (11.5-14.5); Red Blood Cell (RBC) Count 3.55 mill/uL (4.70-6.10); White Blood Cell (WBC) Count 13.6 thou/uL (4.8-10.8)
[2017-05-29 02:47] LABS: Vancomycin, Random 12.8 ug/mL (See Comment)
[2017-05-29 03:07] LABS: Anion Gap 13 mmol/L (10-20); BUN (Urea Nitrogen) 73 mg/dL (8.4-25.7); Calc. Creatinine Clearance 22 mL/min (70-130); Calcium 8.8 mg/dL (7.8-10.44); Carbon Dioxide 27 mmol/L (23-31); Chloride 109 mmol/L (98-107); Estimated GFR-MDRD 33; Glucose 152 mg/dL (83-110); Potassium 4.6 mmol/L (3.5-5.1); Sodium 144 mmol/L (136-145)
[2017-05-29] MEDS: Mometasone/Formoterol 120 PUFF INHALER INH SCH ×2 (07:51→19:38)
--- NOTE | 2017-05-29 08:38 | PRG ---
DATE OF SERVICE: 05/29/2017 He is awake, alert, responsive. He is weak, cachectic. EF was 20%. X-ray shows CHF bilateral. PHYSICAL EXAMINATION: VITAL SIGNS: Sats 100%, temperature is 97, blood pressure 100/47. CHEST: Chest reveals rhonchi and crackles. CARDIAC: Normal S1-S2. ABDOMEN: Soft, no masses. LABORATORY: White count 20,000. His creatinine is 1.94, BUN 73. IMPRESSION: 1. Congestive heart failure. 2. End-stage cardiomyopathy. 3. Renal failure. 4. Respiratory failure. 5. Supraventricular tachycardia. 6. Hypothyroidism. The patient is a DNR, comfort care. May consider transferring him to a non-monitored bed if okay with primary care physician. I will follow.
--- NOTE | 2017-05-29 08:44 | RAD ---
PORTABLE CHEST: History: CHF. Shortness of breath. Comparison: 05-26-17 FINDINGS: Cardiomegaly. Vascular congestion. Interstitial and hazy alveolar opacities bilaterally, more promine nt in the right mid lung suggests pulmonary edema. There are small bilateral effusions. Dual-lead pac emaker device is noted. IMPRESSION: Cardiomegaly with vascular congestion and pulmonary edema. POS: [facility]
[2017-05-29] MEDS: Cefepime 1 GM, Admixture Fee 1 EACH in Sodium Chloride 0.9% 10 ML SLOW IVP SCH ×2 (09:14→22:22)
[2017-05-29] MEDS: Amiodarone 200 MG TAB PO SCH (09:14)
[2017-05-29] MEDS: Calcium Carbonate + Vit D 1 TAB PO SCH (09:14)
[2017-05-29] MEDS: Famotidine 20 MG TAB PO SCH (09:14)
[2017-05-29] MEDS: Levothyroxine Sodium 88 MCG TAB PO SCH (09:15)
[2017-05-29] MEDS: Furosemide 40 MG/4 ML VIAL SLOW IVP SCH (09:15)
[2017-05-29] MEDS: Hydroxychloroquine Sulfate 200 MG TAB PO SCH (09:15)
[2017-05-29] MEDS: Heparin 5,000 UNITS/ML VIAL SC SCH ×2 (09:15→14:36)
[2017-05-29] MEDS: Multivitamin W/ Minerals 1 TAB PO SCH (09:16)
[2017-05-29] MEDS: Polyethylene Glycol 3350 17 GM Packet PO SCH (09:16)
[2017-05-29] MEDS: Midodrine HCl 5 MG TAB PO SCH ×3 (09:16→20:28)
[2017-05-29] MEDS: Lidocaine 5% Patch TD SCH (09:16)
[2017-05-29] MEDS: Potassium Chloride 10 MEQ TAB PO SCH ×2 (09:16→20:28)
--- NOTE | 2017-05-29 10:39 | CON ---
DATE OF CONSULTATION: 05/28/2017 HISTORY OF PRESENT ILLNESS: This is an 86-year-old gentleman who has a long history of cardiomyopath y, congestive heart failure and status post AICD implant, which is a dual chamber device with the floyd d in the atrium and one in the ventricle, this is not a biventricular device. He was apparently here not too long ago and then decompensated, was in the hospital at [facility] for urinary tract in fection and bradycardia. He was at [facility] where he became short of breath and confu sed. O2 saturations were decreased. He then was transferred to our facility. He has been treated a nd appears he may have pneumonia. His O2 sats are decreased at the facility about 87%. Apparently t hey increased up to 100% after the patient was placed on a CPAP mask, but on room air was about 90% a nd then back down to 80% after he was not on oxygen. He is now stabilized. He also had a temperatur e and was felt that possibly he had some pneumonia. Chest x-ray does show some scattered changes in the right lower lobe. He also has some congestion, but a large cardiomegaly on chest x-ray. He does appear to be still somewhat confused and unable to get any significant history from him except that he said he was short of breath. Otherwise, I cannot get any further history, but does reviewed from the records. His white blood cell count was 7.5. He had a urinalysis performed. There has been no growth thus far and there is no growth in the blood cultures thus far. At this time, he denies any s ignificant complaints of chest pain or shortness of breath. He appears to be relatively comfortable, but is obviously confused. PAST MEDICAL HISTORY: Significant for cardiomyopathy, congestive heart failure, history of AICD plac ement, atrial fibrillation. He has had a history also of coronary artery disease, history of hyperte nsion, hypercholesterolemia, history of rheumatoid arthritis. He has had an orchiectomy performed. He has had lymph node biopsies. He has a history of hypothyroidism. SOCIAL HISTORY: There is no recent history of alcohol or tobacco abuse. He believes he has been in rehabilitation center uncertain he has whether or not he was at home prior to this or whether or not he lives in a prison. ALLERGIES: He is allergic to NEOSPORIN. MEDICATIONS: At this time, include Tylenol, amiodarone 200 mg a day, calcium plus vitamin D. He is on Maxipime. He is on nebulizer treatments and Pepcid. He is on subcu heparin. He takes Plaquenil 200 mg a day, potassium 10 mEq b.i.d., Lasix 40 mg IV daily. He is also on levothyroxine 88 mcg parker y. He has been placed on norepinephrine from the emergency room due to hypotension. He also has a l idocaine patch which was applied due to chronic pain. He is on steroids, methylprednisolone 40 mg q. 6 hours, ProAmatine 5 mg t.i.d. He is on vitamins. He has been given a dose of vancomycin. FAMILY HISTORY: Noncontributory. REVIEW OF SYSTEMS: I cannot get any actual true review of systems. He said he was short of breath a nd has some pain when he arrived here when he was sent to the emergency room. PHYSICAL EXAMINATION: GENERAL: Reveals an elderly, very ill-appearing gentleman, who is awake. He is obviously not very a miles of his surroundings. He is alert, but is confused. VITAL SIGNS: His blood pressure is 110/64. Present heart rate is 68 and regular. He has atrial pac ing and ventricular sensing on the monitor, respiratory rate 16. He is afebrile. HEENT: Reveals the head to be normocephalic, atraumatic. Carotid pulses do not hear any significant bruits. CHEST: Has decreased breath sounds. He also has some rales noted in bilateral bases, more so on the right than the left. CARDIOVASCULAR: Exam reveals a regular rate and rhythm. He has a soft systolic murmur at the aortic valve. He also has a systolic murmur at the apex compatible with his mitral valve regurgitation. ABDOMEN: Soft and nontender. Positive bowel sounds are present. EXTREMITIES: Showed no clubbing or cyanosis. He has multiple areas of ecchymosis. He has some type of bandages. Dermabond over his areas of probably ulcerations or abrasions. Right pedal pulses are present. I cannot palpate left pedal pulses, but popliteal pulses are present. NEUROLOGIC: The patient is either confused and has dementia. SKIN: Warm and dry at this time. IMPRESSION: Congestive heart failure exacerbation due to severe dilated cardiomyopathy. Echocardiog ramon performed here yesterday indicated ejection fraction of 15%-20% with left atrial and left ventric ular dilatation, severe mitral valve regurgitation, severe tricuspid valve regurgitation, moderate to severe pulmonary hypertension with mild aortic valve regurgitation. Also, his chest x-ray did show cardiomegaly and what appears to be congestion and evidence of a dual chamber AICD. His laboratory d nicole shows a creatinine of 2.0 with a BUN of 72. White blood cell count 7.5, hemoglobin 11.5, blood s ugar is 105. His troponin I's are indeterminate and most likely this is indicative of his congestive heart failure. AST was 46 and a BNP was 7929. IMPRESSION: 1. Severe congestive heart failure exacerbation with a history of cardiomyopathy, automatic implanta ble cardioverter defibrillator implant. We would agree with the present management of GERHARD inhibitors as tolerated, beta blockers when he is able to tolerate for his blood pressure is concerned and also to continue diuretics. 2. Either dementia or metabolic encephalopathy. 3. Possible sepsis versus hypotension associated with his cardiomyopathy. Cultures are thus far neg ative. EF is 15%-20%. 4. Renal insufficiency, uncertain as to whether or not this is acute on chronic, whether or not this is chronic. His creatinine was 2.0. We will need to be somewhat careful with the diuretics. He ma y need to actually have dobutamine infusion and we increased the cardiac output for better urine outp ut and also better perfusion of the kidneys perhaps. 5. History in the past of atrial fibrillation. He is in sinus rhythm at this time with atrial pacin g and ventricular sensing. 6. Respiratory failure. This is most likely due to his congestive heart failure and possible underl [place] pneumonia. 7. History of coronary artery disease. This is despite history of uncertain as to what he has wheth er he has had stent placement, does not appear that he has had any bypass surgery in the past or valv ular repair as there is no indication the patient has had a median sternotomy. We will be happy to follow with the patient with you until it becomes more stable. 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
--- NOTE | 2017-05-29 10:47 | PDOC.CTH ---
<Nehal Benson - Last Filed: 05/29/17 10:41> Cardiology Progress Note - Subjective The pt seen and examined. At this moment, the pt is lethergic and unable to answer or follow commands due to confusion. - Objective Vital Signs Temp Pulse Resp BP Pulse Ox 05/29/17 07:58 97.6 F 65 20 101/45 L 100 05/29/17 07:34 100 05/29/17 07:32 62 18 100 05/29/17 04:05 98.0 F 64 17 100/46 L 100 05/29/17 02:01 97 05/29/17 01:00 71 24 H 97 05/29/17 00:30 98.6 F 71 18 114/60 93 L Admit Weight 124 lb 11.2 oz Weight 128 lb 11.2 oz 05/28/17 05/29/17 05/30/17 06:59 06:59 06:59 Intake Total 400 490 Output Total 700 670 Balance -300 -180 - Physical Examination Lungs: other: (coases and diminished at bases) Heart: RRR, other: Abdomen: soft Extremities: other: (No edema) - Telemetry Telemetry Rhythm: AV paced - Labs Result Diagrams: 05/29/17 02:16 05/29/17 02:16 Troponin/CKMB CK-MB (CK-2) 1.1 ng/mL (0-6.6) 05/27/17 00:29 Troponin I 0.246 ng/mL (< 0.028) H 05/27/17 07:55 - Assessment/Plan 1. 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 dilated LA, severe MR, mild AI, severe TR, mod-severe PAP. No edema or SOB at this moment with Lasix 2mg IV daily. No GERHARD, BBloker due to hypotensive. cont. to monitor 2. Resp. failure - possible due to 2ndary to CHF exacerbation; stable with 2LNC 3. CMY with hx of AICD placement - [facility] genereter change out and BiV upgrade on 05/20/[address] Tuttle at [facility]. At that time, VT therapy was off, but cont. Vfib therapy. 4. paroxysmal Afib - On Amio 200mg daily with Heparin subq; 5. TERI - slightly improving; cont. to monitor 6. Hyperthyroidism - on Levothroxine; managed by PCP 7. UTI - on IV antibiotics; managed by PCP MAR reviewed Review of Systems - Review of Systems Constitutional: reports: see HPI EENTM: reports: see HPI Respiratory: reports: see HPI Cardiac (ROS): reports: see HPI ABD/GI: reports: see HPI : reports: see HPI <SosaMalini - Last Filed: 05/29/17 15:44> Cardiology Progress Note - Objective Vital Signs Temp Pulse Resp BP Pulse Ox 05/29/17 13:00 97.3 F L 69 16 93 L 05/29/17 12:49 63 18 95 05/29/17 12:25 97.3 F L 69 16 118/74 93 L 05/29/17 08:00 97.6 F 65 20 100 05/29/17 07:58 97.6 F 65 20 101/45 L 100 05/29/17 07:34 100 05/29/17 07:32 62 18 100 05/29/17 04:05 98.0 F 64 17 100/46 L 100 Admit Weight 124 lb 11.2 oz Weight 128 lb 11.2 oz 05/28/17 05/29/17 05/30/17 06:59 06:59 06:59 Intake Total 400 490 Output Total 700 670 Balance -300 -180 - Labs Result Diagrams: 05/29/17 02:16 05/29/17 02:16 Troponin/CKMB CK-MB (CK-2) 1.1 ng/mL (0-6.6) 05/27/17 00:29 Troponin I 0.246 ng/mL (< 0.028) H 05/27/17 07:55 - Assessment/Plan Pt. seen and eval. by me. I agree with the A/P by the POLICY WRITER TYPIST. We have discussed the pt. and I agree with the plan. Poor prognosis.Continue supportive care. Chest clear anteriorly. Regular rhythm with ectopy.
[2017-05-29] MEDS ORDERED: traMADol HCl 50 MG TAB PO PRN (18:13)
[2017-05-29] MEDS ORDERED: Cyclobenzaprine 10 MG TAB PO PRN (18:13)
--- NOTE | 2017-05-29 18:20 | PDOC.PN ---
- Subjective Encounter Start Date: 05/29/17 Encounter Start Time: 18:00 Subjective: nsg notes rev, luna ovn, pt with and son at bedside, pt is c/o of waffl -: mattress not feeling comfortable - Objective Resuscitation Status: Resuscitation Status DNR:Do Not Resuscitate Vital Signs & Weight: Vital Signs (12 hours) Temp Pulse Resp BP Pulse Ox 05/29/17 16:21 97.3 F L 103 H 18 117/68 88 L 05/29/17 16:00 97.4 F L 64 16 116/68 98 05/29/17 13:00 97.3 F L 69 16 93 L 05/29/17 12:49 63 18 95 05/29/17 12:25 97.3 F L 69 16 118/74 93 L 05/29/17 08:00 97.6 F 65 20 100 05/29/17 07:58 97.6 F 65 20 101/45 L 100 05/29/17 07:34 100 05/29/17 07:32 62 18 100 Weight Admit Weight 124 lb 11.2 oz Weight 128 lb 11.2 oz I&O: 05/28/17 05/29/17 05/30/17 06:59 06:59 06:59 Intake Total 400 490 Output Total 700 670 Balance -300 -180 Result Diagrams: 05/31/17 04:10 05/31/17 04:10 Phys Exam - Physical Examination Constitutional: NAD thin, cachectic appearing, lying in hospital bed HEENT: sclera anicteric, oral pharynx no lesions slightly dry mm Respiratory: no wheezing, no rales, no rhonchi coarse throughout, limited anterior exam 2/2 pt too weak to sit up Cardiovascular: RRR, no significant murmur, no rub Gastrointestinal: soft, non-tender, positive bowel sounds Musculoskeletal: no edema, pulses present Neurological: moves all 4 limbs Dx/Plan - Plan * Please see advanced care planning. 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 * apprec card c/s * apprec pulm c/s * apprec palliative care c/s * * streamline current regimen for acute issues only, d/c secondary prevention regimens to help with alleviating medication/ "pill burden" * * d/w pt's family at bedside Review of Systems - Medications/Allergies Allergies/Adverse Reactions: Allergies Allergy/AdvReac Type Severity Reaction Status Date / Time bacitracin Allergy Verified 05/27/17 03:45 [From Neosporin ([id number])] bacitracin zinc Allergy Verified 05/27/17 03:45 [From Neosporin ([id number]-foe-[id number])] neomycin sulfate Allergy Verified 05/27/17 03:45 [From Neosporin (iwy-eid-wpolj)] polymyxin B Allergy Verified 05/27/17 03:45 [From Neosporin ([id number]-[id number])] TAPE Allergy Uncoded 05/27/17 03:45 Medications: Current Medications Acetaminophen (Tylenol) 650 mg NJ Q4H PRN PRN Reason: Headache/Fever or Pain Last Admin: 05/29/17 13:03 Dose: 650 mg Acetaminophen (Tylenol) 650 mg PO Q6H PRN PRN Reason: Pain Acetaminophen (Tylenol) 1,000 mg PO Q4H PRN PRN Reason: Headache Last Admin: 05/29/17 00:02 Dose: 1,000 mg Hydrocodone Bitart/Acetaminophen (Weems 5/325) 1 tab PO Q4H PRN PRN Reason: Pain Last Admin: 05/30/17 20:46 Dose: 1 tab Al Hydroxide/Mg Hydroxide (Maalox) 30 ml PO Q6H PRN PRN Reason: Heartburn or Indigestion Albuterol/Ipratropium (Duoneb) 3 ml NEB [id number] [facility] Last Admin: 05/31/17 06:56 Dose: 3 ml Albuterol/Ipratropium (Duoneb) 3 ml NEB Q6H PRN PRN Reason: Wheezing Amiodarone HCl (Cordarone) 200 mg PO DAILY [facility] Last Admin: 05/31/17 08:59 Dose: 200 mg Cyclobenzaprine HCl (Flexeril) 10 mg PO TID PRN PRN Reason: Muscle Spasm Last Admin: 05/29/17 20:27 Dose: 10 mg Furosemide (Lasix) 40 mg SLOW IVP DAILY [facility] Last Admin: 05/31/17 08:59 Dose: 40 mg Hydroxychloroquine Sulfate (Plaquenil) 200 mg PO DAILY [facility] Last Admin: 05/31/17 08:58 Dose: 200 mg Cefepime HCl 1 gm/Miscellaneous Medication 1 each/ Sodium Chloride 10 mls @ 120 mls/hr SLOW IVP 0900,2100 [facility] Last Admin: 05/31/17 09:02 Dose: 10 mls Lidocaine (Lidoderm 5% Patch) 1 patch TD DAILY [facility] Last Admin: 05/31/17 09:00 Dose: 1 patch Methylprednisolone Sodium Succinate (Solu-Medrol) 40 mg IVP Q6HR [facility] Last Admin: 05/31/17 05:16 Dose: 40 mg Midodrine (Proamatine) 5 mg PO TID [facility] Last Admin: 05/31/17 08:58 Dose: 5 mg Miscellaneous Medication (Lidocaine Patch Removal) 1 each TOP ASDIR [facility] Mometasone Furoate/Formoterol Fumar (Dulera 100 Mcg/5 Mcg Inhaler) 2 puff INH BID-RT [facility] Last Admin: 05/31/17 07:02 Dose: Not Given Montelukast Sodium (Singulair) 5 mg PO QPM [facility] Last Admin: 05/30/17 20:24 Dose: 5 mg Morphine Sulfate (Roxanol Solution) 10 mg SL Q2H PRN PRN Reason: Breakthrough Pain Last Admin: 05/31/17 07:13 Dose: 10 mg Ondansetron HCl (Zofran) 4 mg IVP Q6H PRN PRN Reason: Nausea/Vomiting Potassium Chloride (Klor-Con 10) 10 meq PO BID [facility] Last Admin: 05/31/17 08:58 Dose: 10 meq Sodium Chloride (Flush - Normal Saline) 10 ml IVF Q12HR [facility] Last Admin: 05/31/17 09:00 Dose: 10 ml Sodium Chloride (Flush - Normal Saline) 10 ml IVF PRN PRN PRN Reason: Saline Flush Last Admin: 05/29/17 06:16 Dose: 10 ml Throat Lozenges (Cepastat Lozenges) 1 keerthi PO Q2H PRN PRN Reason: SORE THROAT Tramadol HCl (Ultram) 50 mg PO Q6H PRN PRN Reason: Pain
--- NOTE | 2017-05-29 18:25 | PDOC.EVN ---
Event Note - Event Note Event Note: advanced care planning note dx: pna, sepsis, uti, chf, irma, dementia d/w: pt's and son at patient's bedside summary; Discussed with patient's family at bedside patient's overall prognosis with the added issue of persistent aspiration of all oral modalities. Patient's family (son at bedside plus ) indicate that they would like to place the patient on inpatient hospice and allow for some oral intake - whatever is the lowest potential risk while understanding that he will likely aspirate and have progressive hypoxic respiratory failure. They state that they have seen him decline ever since his last pneumonia last year and more precipitously so since his last discharge from [facility]. They state he would not want a feeding tube under any circumstances. They have requested inpatient hospice with a very low threshold for initiating comfort care measures should he demonstrate any further decline. Pain medication regimen intitiated. Hospice consulted. Case Management consulted. Greater than 60 minutes spent discussing and coordinating advanced care planning with patient, family, and bedside nsg.
[2017-05-29] MEDS: Montelukast Sodium 10 mg Tablet PO SCH (20:27)
[2017-05-30] MEDS: HYDROcodone/Acetaminophen 5/325 mg Tablet PO PRN ×2 (00:59→20:46)
[2017-05-30] MEDS: Morphine 10 MG/0.5 ML ORAL SYRINGE SL PRN ×5 (04:06→23:50)
[2017-05-30 05:09] LABS: Anion Gap 16 mmol/L (10-20); BUN (Urea Nitrogen) 73 mg/dL (8.4-25.7); Calc. Creatinine Clearance 24 mL/min (70-130); Calcium 9.1 mg/dL (7.8-10.44); Carbon Dioxide 23 mmol/L (23-31); Chloride 112 mmol/L (98-107); Estimated GFR-MDRD 36; Glucose 134 mg/dL (83-110); Sodium 146 mmol/L (136-145)
[2017-05-30 05:15] LABS: Hemoglobin 12.1 g/dL (14.0-18.0); Lymphocytes 7 % (21-51); MDiff Complete? YES; Mean Corpuscular HGB CONC 31.3 g/dL (32.0-36.0); Mean Corpuscular Hemoglobin 29.8 pg (27.0-31.0); Mean Corpuscular Volume 95.1 fl (80.0-94.0); Monocytes 1 % (0-10); Neutrophil 92 % (42-75); Nucleated RBC 1 % (0); PLT Morphology Comment Appears Adequate; Platelet Count 139 thou/uL (130-400); RBC Distribution Width 15.5 % (11.5-14.5); Red Blood Cell (RBC) Count 4.05 mill/uL (4.70-6.10); White Blood Cell (WBC) Count 17.6 thou/uL (4.8-10.8)
[2017-05-30] MEDS: Mometasone/Formoterol 120 PUFF INHALER INH SCH ×2 (07:23→19:09)
[2017-05-30] MEDS: Furosemide 40 MG/4 ML VIAL SLOW IVP SCH (08:45)
[2017-05-30] MEDS: Cefepime 1 GM, Admixture Fee 1 EACH in Sodium Chloride 0.9% 10 ML SLOW IVP SCH ×2 (08:45→20:25)
[2017-05-30] MEDS: Hydroxychloroquine Sulfate 200 MG TAB PO SCH (08:57)
[2017-05-30] MEDS: Potassium Chloride 10 MEQ TAB PO SCH ×2 (08:57→20:25)
[2017-05-30] MEDS: Midodrine HCl 5 MG TAB PO SCH ×3 (08:57→20:24)
[2017-05-30] MEDS: Amiodarone 200 MG TAB PO SCH (08:58)
[2017-05-30] MEDS ORDERED: Famotidine 20 MG TAB PO SCH (09:00)
[2017-05-30] MEDS: Lidocaine 5% Patch TD SCH (09:05)
--- NOTE | 2017-05-30 10:46 | PDOC.CTH ---
<Nehal Benson - Last Filed: 05/30/17 10:40> Cardiology Progress Note - Subjective The pt seen and examined. No overnight events. No cardiac complaints. He was drowsy but able to answer his name and . He denied CP or discomfort in her chest. - Objective Vital Signs Temp Pulse Resp BP Pulse Ox 05/30/17 09:18 96.1 F L 64 24 H 113/66 99 05/30/17 07:25 70 18 Admit Weight 124 lb 11.2 oz Weight 128 lb 11.2 oz 05/29/17 05/30/17 05/31/17 06:59 06:59 06:59 Intake Total 490 30 Output Total 670 480 Balance -180 -450 - Physical Examination Neck: no JVD present Lungs: other: (diminished at bases) Abdomen: soft Extremities: other: (No edema) - Labs Result Diagrams: 05/30/17 04:23 05/30/17 04:23 Troponin/CKMB CK-MB (CK-2) 1.1 ng/mL (0-6.6) 05/27/17 00:29 Troponin I 0.246 ng/mL (< 0.028) H 05/27/17 07:55 - Assessment/Plan 1. 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 dilated LA, severe MR, mild AI, severe TR, mod-severe PAP. No edema or SOB at this moment with Lasix 2mg IV daily. No GERHARD, BBloker due to hypotensive. cont. to monitor 2. Resp. failure - possible due to 2ndary to CHF exacerbation; stable with 2LNC 3. CMY with hx of AICD placement - [facility] genereter change out and BiV upgrade on 05/20/[address] Tuttle at [facility]. At that time, VT therapy was off, but cont. Vfib therapy. 4. paroxysmal Afib - On Amio 200mg daily with Heparin subq; 5. TERI - slightly improving; cont. to monitor 6. Hyperthyroidism - on Levothroxine; managed by PCP 7. UTI - on IV antibiotics; managed by PCP MAR reviewed Review of Systems - Review of Systems Constitutional: reports: see HPI EENTM: reports: see HPI Respiratory: reports: see HPI Cardiac (ROS): reports: see HPI ABD/GI: reports: see HPI <Malini Sosa - Last Filed: 05/30/17 16:47> Cardiology Progress Note - Objective Vital Signs Temp Pulse Resp BP Pulse Ox 05/30/17 14:26 97.4 F L 64 23 H 114/71 98 05/30/17 13:57 63 18 05/30/17 11:12 97.5 F L 66 24 H 115/70 97 05/30/17 09:18 96.1 F L 64 24 H 113/66 99 05/30/17 08:00 96.1 F L 64 24 H 99 05/30/17 07:25 70 18 Admit Weight 124 lb 11.2 oz Weight 128 lb 11.2 oz 05/29/17 05/30/17 05/31/17 06:59 06:59 06:59 Intake Total 490 30 Output Total 670 480 Balance -180 -450 - Labs Result Diagrams: 05/30/17 04:23 05/30/17 04:23 Troponin/CKMB CK-MB (CK-2) 1.1 ng/mL (0-6.6) 05/27/17 00:29 Troponin I 0.246 ng/mL (< 0.028) H 05/27/17 07:55 - Assessment/Plan pt. seen and eval. by me. I agree with the A/P by the CLOTHING MANAGER. I spoke to the family at bedside. Pt. appears very weak but did eat a little today.poor prognosis.
--- NOTE | 2017-05-30 13:47 | PRG ---
DATE OF SERVICE: 05/30/2017 SUBJECTIVE: He was transferred out of the MICU, he is a DNR. OBJECTIVE: VITAL SIGNS: Sats are 93 on 2 liters, respirations 18, temperature 97, blood pressure 120/80. CHEST: Extensive rhonchi and crackles. CARDIAC: Normal S1, S2. No gallops. ABDOMEN: Soft. No masses. LABORATORY DATA: Creatinine 1.8, BUN 73, white count 17,000. X-RAY FINDINGS: X-ray from yesterday shows diffuse pulmonary infiltrates. IMPRESSION: 1. Congestive heart failure, 20% ejection fraction. 2. Possible aspiration pneumonia. 3. Advanced age. 4. Dementia. PLAN: Comfort care. Speech to see whether he can have some liquids. Once able to swallow, we will switch over to oral medication.
[2017-05-30 14:04] VITALS: BMI 17.4
[2017-05-30] MEDS: Montelukast Sodium 10 mg Tablet PO SCH (20:24)
--- NOTE | 2017-05-30 23:25 | PDOC.PN ---
- Subjective Encounter Start Date: 05/30/17 Encounter Start Time: 10:25 Subjective: nsg notes rev, luna ovn, no new c/o sitter at bedside - Objective Resuscitation Status: Resuscitation Status DNR:Do Not Resuscitate Vital Signs & Weight: Vital Signs (12 hours) Temp Pulse Resp BP BP Pulse Ox 05/30/17 19:08 97.6 F 70 20 110/66 100 05/30/17 18:55 68 16 93 L 05/30/17 16:00 97.8 F 65 16 119/71 94 L 05/30/17 14:26 97.4 F L 64 23 H 114/71 98 05/30/17 13:57 63 18 Weight Admit Weight 124 lb 11.2 oz Weight 128 lb 11.2 oz I&O: 05/29/17 05/30/17 05/31/17 06:59 06:59 06:59 Intake Total 490 30 140 Output Total 670 480 500 Balance -180 -450 -360 Result Diagrams: 05/31/17 04:10 05/31/17 04:10 Phys Exam - Physical Examination Constitutional: NAD HEENT: sclera anicteric slightly dry m Respiratory: no wheezing, no rales, no rhonchi coarse throughout b/l air mvmt, ant exam Gastrointestinal: positive bowel sounds Dx/Plan - Plan * Patient with poor prognosis would not be surprised if within 48hrs as patient and family has opted for comfort care approach as per advanced care planning from yesterday. Inpatient hospice consultation has been requested. Family has indicated that they would prefer for the patient to stay in his current bed if at all possible. Review of Systems - Medications/Allergies Allergies/Adverse Reactions: Allergies Allergy/AdvReac Type Severity Reaction Status Date / Time bacitracin Allergy Verified 05/27/17 03:45 [From Neosporin ([id number])] bacitracin zinc Allergy Verified 05/27/17 03:45 [From Neosporin ([id number])] neomycin sulfate Allergy Verified 05/27/17 03:45 [From Neosporin ([id number])] polymyxin B Allergy Verified 05/27/17 03:45 [From Neosporin ([id number])] TAPE Allergy Uncoded 05/27/17 03:45 Medications: Current Medications Acetaminophen (Tylenol) [address] Q4H PRN PRN Reason: Headache/Fever or Pain Last Admin: 05/29/17 13:03 Dose: 650 mg Acetaminophen (Tylenol) 650 mg PO Q6H PRN PRN Reason: Pain Acetaminophen (Tylenol) 1,000 mg PO Q4H PRN PRN Reason: Headache Last Admin: 05/29/17 00:02 Dose: 1,000 mg Hydrocodone Bitart/Acetaminophen ([place] 5/325) 1 tab PO Q4H PRN PRN Reason: Pain Last Admin: 05/30/17 20:46 Dose: 1 tab Al Hydroxide/Mg Hydroxide (Maalox) 30 ml PO Q6H PRN PRN Reason: Heartburn or Indigestion Albuterol/Ipratropium (Duoneb) 3 ml NEB [id number] [facility] Last Admin: 05/31/17 06:56 Dose: 3 ml Albuterol/Ipratropium (Duoneb) 3 ml NEB Q6H PRN PRN Reason: Wheezing Amiodarone HCl (Cordarone) 200 mg PO DAILY [facility] Last Admin: 05/31/17 08:59 Dose: 200 mg Cyclobenzaprine HCl (Flexeril) 10 mg PO TID PRN PRN Reason: Muscle Spasm Last Admin: 05/29/17 20:27 Dose: 10 mg Furosemide (Lasix) 40 mg SLOW IVP DAILY [facility] Last Admin: 05/31/17 08:59 Dose: 40 mg Hydroxychloroquine Sulfate (Plaquenil) 200 mg PO DAILY [facility] Last Admin: 05/31/17 08:58 Dose: 200 mg Cefepime HCl 1 gm/Miscellaneous Medication 1 each/ Sodium Chloride 10 mls @ 120 mls/hr SLOW IVP 0900,2100 [facility] Last Admin: 05/31/17 09:02 Dose: 10 mls Lidocaine (Lidoderm 5% Patch) 1 patch TD DAILY [facility] Last Admin: 05/31/17 09:00 Dose: 1 patch Methylprednisolone Sodium Succinate (Solu-Medrol) 40 mg IVP Q6HR [facility] Last Admin: 05/31/17 05:16 Dose: 40 mg Midodrine (Proamatine) 5 mg PO TID [facility] Last Admin: 05/31/17 08:58 Dose: 5 mg Miscellaneous Medication (Lidocaine Patch Removal) 1 each TOP ASDIR [facility] Mometasone Furoate/Formoterol Fumar (Dulera 100 Mcg/5 Mcg Inhaler) 2 puff INH BID-RT [facility] Last Admin: 05/31/17 07:02 Dose: Not Given Montelukast Sodium (Singulair) 5 mg PO QPM [facility] Last Admin: 05/30/17 20:24 Dose: 5 mg Morphine Sulfate (Roxanol Solution) 10 mg SL Q2H PRN PRN Reason: Breakthrough Pain Last Admin: 05/31/17 07:13 Dose: 10 mg Ondansetron HCl (Zofran) 4 mg IVP Q6H PRN PRN Reason: Nausea/Vomiting Potassium Chloride (Klor-Con 10) 10 meq PO BID [facility] Last Admin: 05/31/17 08:58 Dose: 10 meq Sodium Chloride (Flush - Normal Saline) 10 ml IVF Q12HR [facility] Last Admin: 05/31/17 09:00 Dose: 10 ml Sodium Chloride (Flush - Normal Saline) 10 ml IVF PRN PRN PRN Reason: Saline Flush Last Admin: 05/29/17 06:16 Dose: 10 ml Throat Lozenges (Cepastat Lozenges) 1 keerthi PO Q2H PRN PRN Reason: SORE THROAT Tramadol HCl (Ultram) 50 mg PO Q6H PRN PRN Reason: Pain
[2017-05-31] MEDS: Morphine 10 MG/0.5 ML ORAL SYRINGE SL PRN ×3 (03:11→13:22)
[2017-05-31 05:58] LABS: Anion Gap 15 mmol/L (10-20); BUN (Urea Nitrogen) 84 mg/dL (8.4-25.7); Calc. Creatinine Clearance 23 mL/min (70-130); Carbon Dioxide 25 mmol/L (23-31); Chloride 113 mmol/L (98-107); Potassium 5.4 mmol/L (3.5-5.1); Sodium 148 mmol/L (136-145)
[2017-05-31 05:59] LABS: Calcium 9.2 mg/dL (7.8-10.44); Estimated GFR-MDRD 34; Glucose 136 mg/dL (83-110)
[2017-05-31 06:25] LABS: Band 6 % (5-11); Hemoglobin 12.3 g/dL (14.0-18.0); Hypochromia SLIGHT = 6-15 cells (100X) (0-5/hpf); Lymphocytes 8 % (21-51); MDiff Complete? YES; Macrocytosis SLIGHT = 6-15 cells (100X) (0-5/hpf); Mean Corpuscular HGB CONC 30.9 g/dL (32.0-36.0); Mean Corpuscular Hemoglobin 29.5 pg (27.0-31.0); Mean Corpuscular Volume 95.5 fl (80.0-94.0); Monocytes 4 % (0-10); Neutrophil 81 % (42-75); PLT Morphology Comment Appears Decreased; Platelet Count 122 thou/uL (130-400); RBC Distribution Width 15.6 % (11.5-14.5); Reactive Lymphocytes 1 % (0-10); Red Blood Cell (RBC) Count 4.18 mill/uL (4.70-6.10); White Blood Cell (WBC) Count 16.1 thou/uL (4.8-10.8)
[2017-05-31] MEDS: Mometasone/Formoterol 120 PUFF INHALER INH SCH ×2 (07:02→18:52)
[2017-05-31] MEDS: Midodrine HCl 5 MG TAB PO SCH ×3 (08:58→20:53)
[2017-05-31] MEDS: Hydroxychloroquine Sulfate 200 MG TAB PO SCH (08:58)
[2017-05-31] MEDS: Potassium Chloride 10 MEQ TAB PO SCH ×2 (08:58→21:13)
[2017-05-31] MEDS: Amiodarone 200 MG TAB PO SCH (08:59)
[2017-05-31] MEDS: Furosemide 40 MG/4 ML VIAL SLOW IVP SCH (08:59)
[2017-05-31] MEDS: Lidocaine 5% Patch TD SCH (09:00)
[2017-05-31] MEDS: Cefepime 1 GM, Admixture Fee 1 EACH in Sodium Chloride 0.9% 10 ML SLOW IVP SCH ×2 (09:02→20:52)
--- NOTE | 2017-05-31 13:22 | PRG ---
DATE OF SERVICE: 05/31/2017 SUBJECTIVE: This morning, he is actually in respiratory distress. OBJECTIVE: VITAL SIGNS: Sats 96% on 2 liters, respirations 14, temperature 97, blood pressure 140/72. GENERAL: He is weak. He is encephalopathic. CHEST: Decreased breath sounds, no wheezing. CARDIAC: Normal S1 and S2. No gallops. LABORATORY DATA: White count 16,000, H and H 12 and 39. BUN and creatinine 84 and 1.89. IMPRESSION: Respiratory failure, end-stage cardiomyopathy, leukocytosis, possibly superimposed pneum onia. PLAN: Comfort care. He is a DNR. I will discontinue his IV antibiotic and steroids. He can swallow. Palliative care has been consulted.
[2017-05-31] MEDS: Montelukast Sodium 10 mg Tablet PO SCH (20:52)
[2017-05-31] MEDS: HYDROcodone/Acetaminophen 5/325 mg Tablet PO PRN (20:54)
[2017-06-01] MEDS: Lorazepam 2 MG/ML VIAL SLOW IVP PRN ×2 (00:05→20:24)
--- NOTE | 2017-06-01 01:02 | PDOC.PN ---
- Subjective Encounter Start Date: 05/31/17 Encounter Start Time: 17:00 Subjective: nsg notes rev, luna ovn, pt vocalizes but not verbalizing - Objective Resuscitation Status: Resuscitation Status DNR:Do Not Resuscitate Vital Signs & Weight: Vital Signs (12 hours) Temp Pulse Resp BP Pulse Ox 06/01/17 00:45 97.7 F 77 20 91/56 L 97 05/31/17 23:56 74 20 98 05/31/17 20:50 98.1 F 74 18 90 L 05/31/17 19:14 98.1 F 74 18 138/79 05/31/17 18:49 73 20 05/31/17 14:30 76 24 H Weight Admit Weight 124 lb 11.2 oz Weight 128 lb 11.2 oz I&O: 05/30/17 05/31/17 06/01/17 06:59 06:59 06:59 Intake Total 30 140 200 Output Total 480 650 Balance -450 -510 200 Result Diagrams: 06/01/17 04:05 06/01/17 04:05 Phys Exam - Physical Examination Constitutional: NAD HEENT: sclera anicteric slightly dry mm coarse with rattling throughout Cardiovascular: RRR, no significant murmur, no rub Gastrointestinal: soft, positive bowel sounds Musculoskeletal: no edema Dx/Plan - Plan * Please see event note. * addition of anxiolytic regimen * if continued decline in condition, low threshold for transition to pure comfort care only
--- NOTE | 2017-06-01 01:02 | PDOC.EVN ---
Event Note - Event Note Event Note: advanced care planning note participants: patient's , patients 2 sons at patient's bedside Summary: Discussed with patient's family hospice - they would like to continue onto hospice in the current room and understand that we may discuss transitioning to comfort care. They state that would like him to have optimal quality of life possible given the current situation including use of anxiolytics and pain medications including morphine for shortness of breath. Prognosis remainds very poor and I discussed with the patient's family that it would not be surprising if he passed over the weekend. Family is amenable to re- approaching hospice location if he stablizes while on hospice care. Greater than 46 minutes spent discussing advanced care planning with family at bedside.
[2017-06-01 04:31] LABS: Band 5 % (5-11); Hemoglobin 13.4 g/dL (14.0-18.0); MDiff Complete? YES; Mean Corpuscular HGB CONC 30.4 g/dL (32.0-36.0); Mean Corpuscular Hemoglobin 29.5 pg (27.0-31.0); Mean Platelet Volume 10.2 fL (7.4-10.4); Monocytes 2 % (0-10); Neutrophil 93 % (42-75); Nucleated RBC 1 % (0); PLT Morphology Comment Appears Decreased; Platelet Count 76 thou/uL (130-400); RBC Distribution Width 15.6 % (11.5-14.5); Red Blood Cell (RBC) Count 4.54 mill/uL (4.70-6.10); White Blood Cell (WBC) Count 18.4 thou/uL (4.8-10.8)
[2017-06-01 04:32] LABS: Anion Gap 18 mmol/L (10-20); BUN (Urea Nitrogen) 103 mg/dL (8.4-25.7); Calc. Creatinine Clearance 19 mL/min (70-130); Calcium 8.7 mg/dL (7.8-10.44); Carbon Dioxide 24 mmol/L (23-31); Chloride 116 mmol/L (98-107); Estimated GFR-MDRD 27; Glucose 122 mg/dL (83-110); Potassium 5.6 mmol/L (3.5-5.1); Sodium 152 mmol/L (136-145)
[2017-06-01] MEDS: Mometasone/Formoterol 120 PUFF INHALER INH SCH ×2 (06:29→18:06)
[2017-06-01] MEDS: Morphine 10 MG/0.5 ML ORAL SYRINGE SL PRN ×3 (06:35→17:52)
[2017-06-01] MEDS: HYDROcodone/Acetaminophen 5/325 mg Tablet PO PRN ×2 (08:44→13:51)
[2017-06-01] MEDS: Furosemide 40 MG/4 ML VIAL SLOW IVP SCH (08:46)
[2017-06-01] MEDS: Amiodarone 200 MG TAB PO SCH (08:46)
[2017-06-01] MEDS: Midodrine HCl 5 MG TAB PO SCH ×2 (08:46→13:52)
[2017-06-01] MEDS: Hydroxychloroquine Sulfate 200 MG TAB PO SCH (08:47)
[2017-06-01] MEDS: Lidocaine 5% Patch TD SCH (09:01)
[2017-06-01] MEDS: Potassium Chloride 10 MEQ TAB PO SCH ×2 (09:01→20:20)
[2017-06-01] MEDS: Cefepime 1 GM, Admixture Fee 1 EACH in Sodium Chloride 0.9% 10 ML SLOW IVP SCH ×2 (09:03→20:26)
--- NOTE | 2017-06-01 13:21 | PDOC.PN ---
- Subjective Encounter Start Date: 06/01/17 Encounter Start Time: 13:00 Subjective: +Moaning. -: Does not communicate. - Objective Resuscitation Status: Resuscitation Status DNR:Do Not Resuscitate Vital Signs & Weight: Vital Signs (12 hours) Temp Pulse Resp BP Pulse Ox 06/01/17 12:00 91 L 06/01/17 11:23 98.1 F 77 22 H 97/58 L 97 06/01/17 08:00 97.8 F 76 22 H 96 06/01/17 07:35 97.8 F 76 22 H 102/61 96 06/01/17 06:26 78 22 H 96 06/01/17 04:00 98.0 F 68 20 96/58 L 97 06/01/17 03:26 98 Weight Admit Weight 124 lb 11.2 oz Weight 128 lb 11.2 oz I&O: 05/31/17 06/01/17 06/02/17 06:59 06:59 06:59 Intake Total 140 390 Output Total 650 350 Balance -510 40 Result Diagrams: 06/01/17 04:05 06/01/17 04:05 Phys Exam - Physical Examination Neck: no JVD Respiratory: clear to auscultation bilateral Cardiovascular: RRR Gastrointestinal: soft Musculoskeletal: no edema Dx/Plan (1) TERI (acute kidney injury) Code(s): N17.9 - ACUTE KIDNEY FAILURE, UNSPECIFIED Status: Acute Comment: ? ATN secondary to hypotension (2) Acute and chronic respiratory failure Code(s): J96.20 - ACUTE AND CHR RESP FAILURE, UNSP W HYPOXIA OR HYPERCAPNIA Status: Acute Comment: likely due to CHF exacerbation. (3) CHF exacerbation Code(s): I50.9 - HEART FAILURE, UNSPECIFIED Status: Acute Qualifiers: Heart failure type: systolic Qualified Code(s): I50.23 - Acute on chronic systolic (congestive) heart failure Comment: Continue IV diuretics as blood pressure allows - Plan Continue supportive care. -: Increase lasix in view of CHF, hypernatremia. -: Being evaluated by hospice. * .
[2017-06-01] MEDS ORDERED: Furosemide 40 MG/4 ML VIAL SLOW IVP SCH (14:00)
[2017-06-01] MEDS ORDERED: Furosemide 40 MG TAB PO SCH (14:00)
[2017-06-01 21:11] VITALS: BP 59/38; TEMP 98.2
--- NOTE | 2017-06-02 11:23 | DS ---
DATE OF ADMISSION: 05/27/2017 DATE OF : 06/01/2017 DIAGNOSES: Acute on chronic respiratory failure, congestive heart failure, acute kidney injury, isch emic cardiomyopathy, urinary tract infection, hypertension, dyslipidemia, hypothyroidism, protein lenore orie malnutrition, and pneumonia. LIBRARY CLERK TALKING BOOKS: Dr. Sosa and Dr. Bolivar. Post-angio chest x-ray, echocardiogram, IV administration of antibiotics, bronchodilator via nebulize r. COURSE OF HOSPITALIZATION: The patient had end-stage cardiomyopathy. His condition did not improve and he was pronounced on 06/01/2017.
--- NOTE | 2017-06-03 15:46 | EKG ---
Test Reason : Blood Pressure : / mmHG Vent. Rate : 074 BPM Atrial Rate : 074 BPM P-R Int : 246 ms QRS Dur : 180 ms QT Int : 464 ms P-R-T Axes : 041 -59 119 degrees QTc Int : 515 ms Sinus rhythm with 1st degree A-V block Left axis deviation Right bundle branch block Inferior infarct , age undetermined Anterior infarct , age undetermined T wave abnormality, consider lateral ischemia Abnormal ECG Confirmed by VANNA KNIGHT M.D. ([id number]), staff editor HEATH LEONG ([id number]) on 06/03/2017 3:46:23 PM Referred By: Confirmed By:VANNA KNIGHT M.D.
== END 2017-06-01 22:19 | disposition expired | DRG 871 ==
LOC: ERS 00:04 → IMCU/EMU 01:45 → T4-B 05-29 11:58
PROVIDERS: ADMIT Internal Medicine; ATTEND Internal Medicine
DX: A41.9 Sepsis, unspecified organism (principal); J96.21 Acute and chronic respiratory failure with hypoxia; I50.23 Acute on chronic systolic (congestive) heart failure; G93.41 Metabolic encephalopathy; J18.9 Pneumonia, unspecified organism; E44.0 Moderate protein-calorie malnutrition; N17.9 Acute kidney failure, unspecified; N39.0 Urinary tract infection, site not specified; Z68.1 Body mass index [BMI] 19.9 or less, adult; E87.5 Hyperkalemia; I11.0 Hypertensive heart disease with heart failure; Z66 Do not resuscitate; I48.91 Unspecified atrial fibrillation; J84.10 Pulmonary fibrosis, unspecified; E03.9 Hypothyroidism, unspecified; I25.5 Ischemic cardiomyopathy; I25.10 Atherosclerotic heart disease of native coronary artery without angina pectoris; E78.5 Hyperlipidemia, unspecified; R65.20 Severe sepsis without septic shock; M06.9 Rheumatoid arthritis, unspecified; F03.90 Unspecified dementia, unspecified severity, without behavioral disturbance, psychotic disturbance, mood disturbance, and anxiety; Z88.3 Allergy status to other anti-infective agents; Z95.810 Presence of automatic (implantable) cardiac defibrillator
CPT/HCPCS: 36415; 51702; 71045; 80048; 80202; 81003; 82553; 82805; 83605; 83735; 83880; 84100; 84484; 85025; 87040; 87086; 93005; 93306; 94640; 94660; 94664; 96361; 96365; 96366; 96368; 96375; A4216; G8978-GP-CN; G8979-GP-CL; G8987-GO-CN; G8988-GO-CL; G8996-GN-CI; G8996-GN-CJ; G8996-GN-CM; G8997-GN-CI; G8997-GN-CM; J0692; J1644; J1940; J1956; J2060; J2920; J3370; J7050; J7620; S0028